=== PATIENT | male | born 1980 | race Caucasian/White ===

== ENCOUNTER 2024-04-29 09:48 | Outpatient (CLI) | payer OTHER, SELFPAY ==
--- NOTE | ~2024-04-29 | XR_ITS ---
3 VIEWS LUMBAR SPINE Ordering provider: Alla Freitas APRN History: . M54.9 - Dorsalgia, unspecified . Comparison: None. FINDINGS: VERTEBRAL BODIES: No visible fracture or subluxation. Degenerative changes of the spine. DISK SPACES: Narrowing of the disc L5-S1.. Joint disease at the level of L5-S1. SOFT TISSUES: Normal. IMPRESSION: No acute osseous abnormality lumbar spine. Degenerative disc disease at the level L5-S1. Reviewed, dictated and finalized at location A. SPEC
== END 2024-04-29 09:49 | disposition home or self-care (01) ==
PROVIDERS: PCP Family Medicine; Visit Provider Nurse Practitioner Family
DX: M51.379 Other intervertebral disc degeneration, lumbosacral region without mention of lumbar back pain or lower extremity pain (principal)
CPT/HCPCS: 72100

== ENCOUNTER 2024-08-15 13:20 | Observation (INO) | payer OTHER, SELFPAY ==
[2024-08-15] VITALS (7 sets, daily range): BP systolic 120–146; BP diastolic 70–87; PULSE 70–91; RESP 16–21; TEMP 36.7–38.1; O2SAT 98–100; BMI 34.0
--- NOTE | ~2024-08-15 | MR_ITS ---
EXAMINATION: MR lumbar spine wo/w con DATE: 08/16/2024 10:50 INDICATION: Fever. Radicular pain. TECHNIQUE: Magnetic resonance imaging (MRI) of the lumbar spine was performed without and with 20 mL Multihance intravenous contrast. Sequences included sagittal T2-weighted FSE, sagittal T2-weighted FS FSE, and sagittal and axial T1-weighted FSE. Postcontrast sequences included axial T2-weighted FSE, sagittal T1-weighted FSE, and axial and sagittal T1-weighted FS FSE. COMPARISON: None FINDINGS: 5 mm retrolisthesis L5 on S1. Vertebral body heights are normal. Normal marrow signal. Moderate disc height loss with annular fissure at L5-S1. Remaining lumbar discs demonstrate normal height and sign al. No findings to suggest discitis. The conus medullaris terminates at L1. There is normal signal in the caudal spinal cord. 1.2 cm T2 hyperintense nonenhancing right renal cyst. Paravertebral soft tis sues are unremarkable. The following disc levels are specifically discussed: T12-L1 through L2-L3: The disc does not extend beyond the endplate margin. There is mild bilateral fa cet joint osteoarthritis. There is no neural foraminal stenosis. There is no central canal stenosis. L3-L4: Right foraminal zone annular fissure and small disc protrusion. There is mild bilateral facet joint osteoarthritis. There is mild right neural foraminal stenosis. There is minimal central canal s tenosis with mild narrowing of the right lateral recess. L4-L5: The disc does not extend beyond the endplate margin. There is mild bilateral facet joint osteo arthritis. There is mild bilateral neural foraminal stenosis. There is no central canal stenosis. L5-S1: Disc is mildly bulging with superimposed right paracentral to right foraminal zone disc bulge which narrows the right lateral recess exerting mass effect upon the traversing right S1 nerve root. There is mild bilateral facet joint osteoarthritis. There is mild to moderate left and moderate right neural foraminal stenosis. There is mild central canal stenosis. IMPRESSION: 1. Mild lumbar spondylosis most notable for annular fissure and right paracentral to foraminal zone d isc protrusion at L5-S1 which and exerts mass effect upon the traversing right S1 nerve root at the l ateral recess. Correlate clinically for muscle weakness of plantar flexion, sensory change of the lat eral foot and small toe, and depressed ankle reflex. Reviewed, dictated and finalized at location A. IMPRESSION: 1. Mild lumbar spondylosis most notable for annular fissure and right paracentr al to foraminal zone disc protrusion at L5-S1 which and exerts mass effect upon the traversing right S1 nerve root at the lateral recess. Correlate clinically for muscle weakness of plantar flexion, sensory change of the lateral foot and small toe, and depressed ankle reflex.
--- NOTE | ~2024-08-15 | CT_ITS ---
CLINICAL INDICATION: Acute on chronic back pain COMPARISON: None. TECHNIQUE: Multiple contiguous axial images of the abdomen and pelvis were performed following the ad ministration of with 100 mL Omnipaque-350 intravenous contrast The dose-length product (DLP) was 1019.04 mGy-cm. Automated exposure control and iterative reconstruction technique were employed. FINDINGS/OBSERVATIONS: Visualized lower thorax: Trace bibasilar atelectasis. The remainder of the bilateral lung bases are clear. The heart is of normal size, without pericardial effusion. Small hiatal hernia is present. Liver: The liver demonstrates homogeneous enhancement and is enlarged measuring 21 cm in longitudinal dimens ion. Gallbladder and biliary system: The gallbladder is only minimally distended, and otherwise unremarkable. Pancreas: The pancreas enhances homogeneously without ductal dilatation. Spleen: The spleen enhances homogeneously and is borderline enlarged measuring 14 cm in longitudinal dimensio n. Kidneys: The bilateral kidneys enhance symmetrically without hydronephrosis or renal calculi. Adrenal glands: Unremarkable. Gastrointestinal tract: Edematous mural thickening within the cecum and proximal ascending colon. Appendix: The air-filled appendix is of normal caliber (axial series, images 120 through 144) Vasculature: Unremarkable. Lymph nodes: No pathologically enlarged or morphologically suspicious lymph nodes within the retroperitoneum or at the root of the mesentery. Pelvic structures: The bladder is distended, and otherwise unremarkable. The prostate gland is not enlarged. Body wall and musculoskeletal: Small fat-containing umbilical hernia. Redemonstration of degenerative disease at the level of L5/S1, as described previously. IMPRESSION: Edematous mural thickening within the cecum and proximal ascending colon. Hepatomegaly. Borderline splenomegaly. Trace bibasilar atelectasis. Redemonstration of patient's known degenerative disease at the level of L5/S1 Reviewed, dictated and finalized at location A.
--- NOTE | ~2024-08-15 | CT_ITS ---
CT lumbar spine wo con Ordering provider: Andra Rock History: 44 years Male with . right sided sciatica . Comparison: None. Technique: CT lumbar spine without contrast. Automated exposure control and iterative reconstruction technique were employed. The dose-length product was 889.27 mGy-cm. FINDINGS: VERTEBRAE: Normal height and alignment. No subluxation or visible acute fracture. DISC SPACES: Degenerative disc disease at the level of L5-S1. T12-L1: No stenosis. L1-L2: No stenosis. L2-L3: No stenosis. L3-L4: No stenosis. L4-L5: No stenosis. L5-S1: No stenosis. Diffuse disc bulge. Narrowing of the right foramen with root compression. PARASPINOUS SOFT TISSUES: Bilateral sacroiliitis. IMPRESSION: No acute osseous abnormality. Degenerative disc disease at the level of L5-S1 with diffuse disc bulge with narrowing of the right f oramen and with compression. MRI is better for evaluation. Reviewed, dictated and finalized at location A. IMPRESSION: No acute osseous abnormality. Degenerative disc disease at the level of L5-S1 with diffuse disc bulge with na rrowing of the right foramen and with compression. MRI is better for evaluation .
--- NOTE | ~2024-08-15 | XR_ITS ---
CHEST RADIOGRAPH, PA AND LATERAL CLINICAL HISTORY: fever . COMPARISON: None available TECHNIQUE: PA and lateral views of the chest. FINDINGS The cardiomediastinal silhouette is unremarkable. The lungs are clear. Visualized osseous structures and soft tissues are unremarkable. IMPRESSION: No focal infiltrate or effusion. Reviewed, dictated and finalized at location A.
--- NOTE | 2024-08-15 14:17 | PC.NURSE ---
Visitor with pt. alerted RN at electrician front that pt. was dizzy. This RN went out to to assess pt. Pt. pacing, gait steady. No pallor. Pt. denies dizziness but states the pain is just really bad. VS obtained. WNL. Pt. educated to alert the RN at the front if there are any additional changes.
--- NOTE | 2024-08-15 15:58 | ED_ITS ---
HPI - Extremity Problem General Chief complaint: Extremity Problem,Nontraumatic <Andra Rock PA-C - Last Filed: 08/15/24 17:04> Stated complaint: R. lower back pain, radiates to R. foot <Andra Rock PA-C - Last Filed: 08/15/24 17:04> Time Seen by Provider: 08/15/24 18:26 <Andra Rock PA-C - Last Filed: 08/15/24 17:04> Focused HPI: 44-year-old male with reported history of sciatica presents emergency department for acute on chronic back pain. Patient states today he had a ?fever? of 99.6. He states shortly after the pain in his back became worse than normal which prompted him to come to the ED. He states it starts in his right low back and radiates down the posterior aspect of his thigh and wraps around to the dorsum of his 4th and 5th metatarsals. He reports intermittent numbness and tingling. He states his symptoms are much worse when he sits for long periods of time and is having difficulty finding a comfortable position. He denies procedures or surgeries to his back, IV drug use, use of immunosuppressants or steroids, vomiting, abdominal pain, saddle anesthesia, bowel or bladder incontinence. GENERAL: Uncomfortable-appearing HEAD: Normocephalic, atraumatic. CHEST: Clear to auscultation. ?No respiratory distress. BACK: No significant midline lumbar spinous tenderness, crepitus, step-offs or deformities. No overlying skin changes. Minimal tenderness over the right paraspinous muscles and right SI joint. EXT: Bilateral lower extremity strength 5/5 with sensation intact throughout. No saddle anesthesia. Right DP pulse 2 +. HEART: Regular rate and rhythm.? NEURO: ?Alert and oriented x3. Patient screened in triage and initial orders placed.? ?Additional care and disposition to be based upon?diagnostic testing and treatment. <Andra Rock PA-C - Last Filed: 08/15/24 17:04> Focused HPI: 44-year-old male with reported history of sciatica presents emergency department for acute on chronic back pain. Patient states today he had a fever of 99.6. He states shortly after the pain in his back became worse than normal which prompted him to come to the ED. He states it starts in his right low back and radiates down the posterior aspect of his thigh and wraps around to the dorsum of his 4th and 5th metatarsals. He reports intermittent numbness and tingling. He states his symptoms are much worse when he sits for long periods of time and is having difficulty finding a comfortable position. He denies procedures or surgeries to his back, IV drug use, use of immunosuppressants or steroids, vomiting, abdominal pain, saddle anesthesia, bowel or bladder incontinence. GENERAL: Uncomfortable-appearing HEAD: Normocephalic, atraumatic. CHEST: Clear to auscultation. ?No respiratory distress. BACK: No significant midline lumbar spinous tenderness, crepitus, step-offs or deformities. No overlying skin changes. Minimal tenderness over the right paraspinous muscles and right SI joint. EXT: Bilateral lower extremity strength 5/5 with sensation intact throughout. No saddle anesthesia. Right DP pulse 2 +. HEART: Regular rate and rhythm.? NEURO: ?Alert and oriented x3. Patient screened in triage and initial orders placed.? ?Additional care and disposition to be based upon?diagnostic testing and treatment. <Nicci Segura PA-C - Last Filed: 08/16/24 02:34> Related Data Home medications: Home Medications ?Medication ?Instructions ?Recorded ?Confirmed ?Last Taken ?Type omega-3 fatty acids 500 mg PO DAILY 08/16/24 08/16/24 Unknown History <Andra Rock PA-C - Last Filed: 08/15/24 17:04> Allergies/Adverse reactions: Allergies Allergy/AdvReac Type Severity Reaction Status Date / Time No Known Allergies Allergy Verified 08/15/24 13:21 <OSWALD Hartman Last Filed: 08/15/24 17:04> Review of Systems 2 Review of Systems: All systems reviewed & are unremarkable except as noted in HPI and below <Nicci Segura PA-C - Last Filed: 08/16/24 02:34> PMFSH Past Medical History Medical History: Medical History Sinusitis Back pain with sciatica Screening for prostate cancer Wellness examination BMI 33.0-33.9,adult BMI 32.0-32.9,adult BMI 31.0-31.9,adult BMI 30.0-30.9,adult <Andra Rock PA-C - Last Filed: 08/15/24 17:04> Family History Family History: Family History Mother Family history of malignant neoplasm of cervix Father No problems noted. Sibling Celiac disease <Andra Rock PA-C - Last Filed: 08/15/24 17:04> Social History Social History: Social History Smoking status: Never smoker Second hand tobacco smoke exposure: No Alcohol intake: current Drinks per week: 1 Substance use: current Substance use type: marijuana Other substance usage details: GUMMIES Do You Feel Safe in your Home?: Yes Lack of Transportation: No Lack of Food: Never True Current Housing: Decline to Answer Concerned About Future Housing: No Difficulty Paying Gas/Electric Bills: No Difficulty Paying for Meds: No Currently Unemployed: No Education: Associate Degree Difficulty w/ Childcare or Family Care: No Living arrangements: with family Occupation/Education: occupation Additional occupation/education comments: [employer] Gender identity (if verbalized by the patient): Male Spiritual care concerns: No <Andra Rock PA-C - Last Filed: 08/15/24 17:04> Exam 2 Narrative: GENERAL: Ill-appearing, well-nourished, and in no acute distress. HEAD: Normocephalic, atraumatic. EYES: EOMI. ENT: Nares clear, no rhinorrhea or epistaxis. Mucous membranes moist. Oropharynx without tonsillar hypertrophy exudate or other lesions. NECK: Supple. No adenopathy or masses. CHEST: Clear to auscultation. No respiratory distress. No wheezes rales or rhonchi HEART: Regular rate and rhythm. No murmur heard. Normal peripheral pulses. ABDOMEN: Soft, nontender, nondistended, normal active bowel sounds. EXTREMITIES: Normal range of motion. No edema. Strength equal in bilateral lower extremities (5/5). Normal DP pulses SKIN: Warm, dry, no rash. NEURO: No focal deficits. Alert and oriented x3. Cranial nerves 2-12 grossly intact PSYCH: Normal mood and affect <Nicci Segura PA-C - Last Filed: 08/16/24 02:34> Course Course Emergency Course: Patient and family updated on workup and recommendation for admission < Nicci Segura PA-C - Last Filed: 08/16/24 02:34> INFORMATION COORDINATOR/PA Physician Supervision For this patient encounter, I reviewed the INFORMATION COORDINATOR or PA documentation, treatment plan, and medical decision making. <Herve Oro MD - Last Filed: 08/16/24 02:54> Consultations Consultation #1: Spoke with Dr. Cuellar about patient and workup. Will admit to obtain MRI, he will consult <Nicci Segura PA-C - Last Filed: 08/16/24 02:34> Date: 08/15/24 <Nicci Segura PA-C - Last Filed: 08/16/24 02:34> Consultation #2: Spoke with hospitalist about patient and workup who accepts admission < Nicci Segura PA-C - Last Filed: 08/16/24 02:34> Date: 08/15/24 <Nicci Segura PA-C - Last Filed: 08/16/24 02:34> Vital Signs Vital signs: Vital Signs Temperature 98.1 F 08/15/24 13:22 Pulse Rate 71 08/15/24 13:22 Respiratory Rate 16 08/15/24 13:22 Blood Pressure 133/81 08/15/24 13:22 Pulse Oximetry 100 08/15/24 13:22 Oxygen Delivery Room Air 08/15/24 13:22 Temperature 98.2 F 08/16/24 02:23 Pulse Rate 67 08/16/24 02:23 Respiratory Rate 18 08/16/24 02:23 Blood Pressure 155/75 H 08/16/24 02:23 Pulse Oximetry 96 08/16/24 02:23 Oxygen Delivery Room Air 08/15/24 18:32 <Andra Rock PA-C - Last Filed: 08/15/24 17:04> Vital Signs Temperature 98.1 F 08/15/24 13:22 Pulse Rate 71 08/15/24 13:22 Respiratory Rate 16 08/15/24 13:22 Blood Pressure 133/81 08/15/24 13:22 Pulse Oximetry 100 08/15/24 13:22 Oxygen Delivery Room Air 08/15/24 13:22 Temperature 98.2 F 08/16/24 02:23 Pulse Rate 67 08/16/24 02:23 Respiratory Rate 18 08/16/24 02:23 Blood Pressure 155/75 H 08/16/24 02:23 Pulse Oximetry 96 08/16/24 02:23 Oxygen Delivery Room Air 08/15/24 18:32 <Nicci Segura PA-C - Last Filed: 08/16/24 02:34> Vital Signs Temperature 98.1 F 08/15/24 13:22 Pulse Rate 71 08/15/24 13:22 Respiratory Rate 16 08/15/24 13:22 Blood Pressure 133/81 08/15/24 13:22 Pulse Oximetry 100 08/15/24 13:22 Oxygen Delivery Room Air 08/15/24 13:22 Temperature 98.2 F 08/16/24 02:23 Pulse Rate 67 08/16/24 02:23 Respiratory Rate 18 08/16/24 02:23 Blood Pressure 155/75 H 08/16/24 02:23 Pulse Oximetry 96 08/16/24 02:23 Oxygen Delivery Room Air 08/15/24 18:32 <Herve Oro MD - Last Filed: 08/16/24 02:54> MDM - Extremity (Nontraumatic) MDM Narrative Medical decision making narrative: Patient presents the emergency department for radicular back pain. Worsening over the last several months. Reports he developed a fever today. Patient febrile in the ER he appears ill. His vitals are stable. He is neurologically intact. CBC with leukocytosis to 12.8. ESR is not elevated. CRP is elevated. Lactic acid is not elevated. Urine without evidence of infection. Chest x-ray without acute cardiopulmonary abnormality. CT lumbar spine shows degenerative disc disease at the level L5/S1 with diffuse disc bulge with narrowing of the right foramen with compression. CT abdomen pelvis shows mural thickening within the cecum and proximal ascending colon. Patient does not have any abdominal pain or diarrhea. Borderline splenomegaly. Trace atelectasis. Degenerative disc disease. Blood cultures obtained. Patient started on IV antibiotics. Spoke with Dr. Cuellar about patient and workup. Will admit to obtain MRI, he will consult. Spoke with hospitalist about patient and workup who accepts admission <Nicci Segura PA-C - Last Filed: 08/16/24 02:34> Differential Diagnosis Differential diagnosis: Likely other (radiculopathy, osteomyelitis, spinal abscess, UTI) <Nicci Segura PA-C - Last Filed: 08/16/24 02:34> Lab Data Attestation: I reviewed the patient's lab results. <Nicci Segura PA-C - Last Filed: 08/16/24 02:34> Result diagrams: 08/15/24 18:45 08/15/24 18:45 <Andra Rock PA-C - Last Filed: 08/15/24 17:04> Labs: Lab Results 08/15/24 08/15/24 08/15/24 Range/Units 18:45 19:13 21:06 WBC 12.8 H (4.5-10.0) K/mm3 RBC 4.99 (4.6-6.20) M/mm3 Hgb 14.7 (14.0-18.0) g/dL Hct 43.1 (42.0-52.0) % MCV 86.4 (80-100) fl MCH 29.5 (26-34) pg MCHC 34.1 (32-36) g/dl RDW 12.2 (11.5-14.5) % Plt Count 197 (150-375) k/mm3 MPV 11.2 H (7.4-10.4) fl Immature Gran % (Auto) 0.4 (0-0.5) % Neut % (Auto) 83.9 H (45.5-73.1) % Lymph % (Auto) 7.3 L (18.3-44.2) % [place] % (Auto) 8.1 (2.6-8.5) % Eos % (Auto) 0.1 (0-4.4) % Baso % (Auto) 0.2 (0.2-1.2) % Lymph # (Auto) 0.93 (0.9-3.2) K/mm3 [place] # (Auto) 1.0 H (0.1-0.6) K/mm3 Eos # (Auto) 0.0 (0-0.3) K/mm3 Baso # (Auto) 0.0 (0.0-0.1) K/mm3 Abs Immat Gran (auto) 0.05 H (0.00-0.031) K/mm3 Absolute Neuts (auto) 10.7 H (1.3-6.7) K/mm3 Absolute Nucleated RBC 0.000 (0.0-0.012) K/mm3 Nucleated RBC % 0.0 (0.0-0.2) % ESR 13 (0-20) mm/hr Sodium 136 L (137-145) mmol/L Potassium 3.1 L (3.4-5.0) mmol/L Chloride 102 (98-107) mmol/L Carbon Dioxide 25 (22-30) mmol/L Anion Gap 9 (4-12) mmol/L BUN 25 H (9-20) mg/dL Creatinine 1.10 (0.7-1.3) mg/dL Estim Creat Clear Calc 92 ml/min Estimated GFR > 60 (59 - ) Glucose 126 H (65-110) mg/dL Lactic Acid 0.8 (0.7-2.0) mmol/L Calcium 8.7 (8.4-10.2) mg/dL Magnesium 2.1 (1.6-2.3) mg/dL Total Bilirubin 0.8 (0.2-1.3) mg/dL AST 42 (17-59) U/L ALT 32 (6-50) U/L Alkaline Phosphatase 64 (38-126) U/L C-Reactive Protein 8.5 H (<1.0) mg/dL Total Protein 6.8 (6.3-8.2) g/dL Albumin 3.9 (3.5-5.1) g/dL Urine Color Dark yellow (Yellow) Urine Appearance Clear (Clear) Urine pH 5.5 (5.0-9.0) Ur Specific Hayden 1.036 H (1.001-1.035) Urine Protein 1+ H (Negative) mg/dL Urine Glucose (UA) Negative (Negative) mg/dL Urine Ketones 1+ H (Negative) mg/dL Ur Blood (Man) Negative (Negative) Urine Nitrate Negative (Negative) Urine Bilirubin 1+ H (Negative) Urine Urobilinogen 1.0 (<2.0) mg/dL Add Ur Microanalysis Reviewed Leukocyte Esterase Rfl Negative (Negative) KATARINA/UL Urine RBC 6-10 H (0-2) /hpf Urine WBC 0-5 (0-3) /hpf Ur Squamous Epith Cells Occasional (Few) /hpf Urine Bacteria None seen /hpf Urine Casts 6-10 Urine Mucus Present /lpf <Andra Rock PA-C - Last Filed: 08/15/24 17:04> Lab Results 08/15/24 08/15/24 08/15/24 Range/Units 18:45 19:13 21:06 WBC 12.8 H (4.5-10.0) K/mm3 RBC 4.99 (4.6-6.20) M/mm3 Hgb 14.7 (14.0-18.0) g/dL Hct 43.1 (42.0-52.0) % MCV 86.4 (80-100) fl MCH 29.5 (26-34) pg MCHC 34.1 (32-36) g/dl RDW 12.2 (11.5-14.5) % Plt Count 197 (150-375) k/mm3 MPV 11.2 H (7.4-10.4) fl Immature Gran % (Auto) 0.4 (0-0.5) % Neut % (Auto) 83.9 H (45.5-73.1) % Lymph % (Auto) 7.3 L (18.3-44.2) % [place] % (Auto) 8.1 (2.6-8.5) % Eos % (Auto) 0.1 (0-4.4) % Baso % (Auto) 0.2 (0.2-1.2) % Lymph # (Auto) 0.93 (0.9-3.2) K/mm3 [place] # (Auto) 1.0 H (0.1-0.6) K/mm3 Eos # (Auto) 0.0 (0-0.3) K/mm3 Baso # (Auto) 0.0 (0.0-0.1) K/mm3 Abs Immat Gran (auto) 0.05 H (0.00-0.031) K/mm3 Absolute Neuts (auto) 10.7 H (1.3-6.7) K/mm3 Absolute Nucleated RBC 0.000 (0.0-0.012) K/mm3 Nucleated RBC % 0.0 (0.0-0.2) % ESR 13 (0-20) mm/hr Sodium 136 L (137-145) mmol/L Potassium 3.1 L (3.4-5.0) mmol/L Chloride 102 (98-107) mmol/L Carbon Dioxide 25 (22-30) mmol/L Anion Gap 9 (4-12) mmol/L BUN 25 H (9-20) mg/dL Creatinine 1.10 (0.7-1.3) mg/dL Estim Creat Clear Calc 92 ml/min Estimated GFR > 60 (59 - ) Glucose 126 H (65-110) mg/dL Lactic Acid 0.8 (0.7-2.0) mmol/L Calcium 8.7 (8.4-10.2) mg/dL Magnesium 2.1 (1.6-2.3) mg/dL Total Bilirubin 0.8 (0.2-1.3) mg/dL AST 42 (17-59) U/L ALT 32 (6-50) U/L Alkaline Phosphatase 64 (38-126) U/L C-Reactive Protein 8.5 H (<1.0) mg/dL Total Protein 6.8 (6.3-8.2) g/dL Albumin 3.9 (3.5-5.1) g/dL Urine Color Dark yellow (Yellow) Urine Appearance Clear (Clear) Urine pH 5.5 (5.0-9.0) Ur Specific Hayden 1.036 H (1.001-1.035) Urine Protein 1+ H (Negative) mg/dL Urine Glucose (UA) Negative (Negative) mg/dL Urine Ketones 1+ H (Negative) mg/dL Ur Blood (Man) Negative (Negative) Urine Nitrate Negative (Negative) Urine Bilirubin 1+ H (Negative) Urine Urobilinogen 1.0 (<2.0) mg/dL Add Ur Microanalysis Reviewed Leukocyte Esterase Rfl Negative (Negative) KATARINA/UL Urine RBC 6-10 H (0-2) /hpf Urine WBC 0-5 (0-3) /hpf Ur Squamous Epith Cells Occasional (Few) /hpf Urine Bacteria None seen /hpf Urine Casts 6-10 Urine Mucus Present /lpf <Nicci Segura PA-C - Last Filed: 08/16/24 02:34> Lab Results 08/15/24 08/15/24 08/15/24 Range/Units 18:45 19:13 21:06 WBC 12.8 H (4.5-10.0) K/mm3 RBC 4.99 (4.6-6.20) M/mm3 Hgb 14.7 (14.0-18.0) g/dL Hct 43.1 (42.0-52.0) % MCV 86.4 (80-100) fl MCH 29.5 (26-34) pg MCHC 34.1 (32-36) g/dl RDW 12.2 (11.5-14.5) % Plt Count 197 (150-375) k/mm3 MPV 11.2 H (7.4-10.4) fl Immature Gran % (Auto) 0.4 (0-0.5) % Neut % (Auto) 83.9 H (45.5-73.1) % Lymph % (Auto) 7.3 L (18.3-44.2) % [place] % (Auto) 8.1 (2.6-8.5) % Eos % (Auto) 0.1 (0-4.4) % Baso % (Auto) 0.2 (0.2-1.2) % Lymph # (Auto) 0.93 (0.9-3.2) K/mm3 [place] # (Auto) 1.0 H (0.1-0.6) K/mm3 Eos # (Auto) 0.0 (0-0.3) K/mm3 Baso # (Auto) 0.0 (0.0-0.1) K/mm3 Abs Immat Gran (auto) 0.05 H (0.00-0.031) K/mm3 Absolute Neuts (auto) 10.7 H (1.3-6.7) K/mm3 Absolute Nucleated RBC 0.000 (0.0-0.012) K/mm3 Nucleated RBC % 0.0 (0.0-0.2) % ESR 13 (0-20) mm/hr Sodium 136 L (137-145) mmol/L Potassium 3.1 L (3.4-5.0) mmol/L Chloride 102 (98-107) mmol/L Carbon Dioxide 25 (22-30) mmol/L Anion Gap 9 (4-12) mmol/L BUN 25 H (9-20) mg/dL Creatinine 1.10 (0.7-1.3) mg/dL Estim Creat Clear Calc 92 ml/min Estimated GFR > 60 (59 - ) Glucose 126 H (65-110) mg/dL Lactic Acid 0.8 (0.7-2.0) mmol/L Calcium 8.7 (8.4-10.2) mg/dL Magnesium 2.1 (1.6-2.3) mg/dL Total Bilirubin 0.8 (0.2-1.3) mg/dL AST 42 (17-59) U/L ALT 32 (6-50) U/L Alkaline Phosphatase 64 (38-126) U/L C-Reactive Protein 8.5 H (<1.0) mg/dL Total Protein 6.8 (6.3-8.2) g/dL Albumin 3.9 (3.5-5.1) g/dL Urine Color Dark yellow (Yellow) Urine Appearance Clear (Clear) Urine pH 5.5 (5.0-9.0) Ur Specific Hayden 1.036 H (1.001-1.035) Urine Protein 1+ H (Negative) mg/dL Urine Glucose (UA) Negative (Negative) mg/dL Urine Ketones 1+ H (Negative) mg/dL Ur Blood (Man) Negative (Negative) Urine Nitrate Negative (Negative) Urine Bilirubin 1+ H (Negative) Urine Urobilinogen 1.0 (<2.0) mg/dL Add Ur Microanalysis Reviewed Leukocyte Esterase Rfl Negative (Negative) KATARINA/UL Urine RBC 6-10 H (0-2) /hpf Urine WBC 0-5 (0-3) /hpf Ur Squamous Epith Cells Occasional (Few) /hpf Urine Bacteria None seen /hpf Urine Casts 6-10 Urine Mucus Present /lpf <Herve Oro MD - Last Filed: 08/16/24 02:54> Imaging Data Radiologist's impression: ITS Impressions Lumbar Spine CT 08/15/24 16:20 IMPRESSION: No acute osseous abnormality. Degenerative disc disease at the level of L5-S1 with diffuse disc bulge with narrowing of the right foramen and with compression. MRI is better for evaluation. Abdomen/Pelvis CT 08/15/24 21:32 IMPRESSION: Edematous mural thickening within the cecum and proximal ascending colon. Hepatomegaly. Borderline splenomegaly. Trace bibasilar atelectasis. Redemonstration of patient's known degenerative disease at the level of L5/S1 Chest X-Ray 08/15/24 22:29 IMPRESSION: No focal infiltrate or effusion. <Nicci Segura PA-C - Last Filed: 08/16/24 02:34> Critical Care Time Critical Care Time Critical Care Time: No <Nicci Segura PA-C - Last Filed: 08/16/24 02:34> Discharge Plan Discharge Clinical Impression: Radiculopathy Qualifiers: Spinal region: lumbosacral Qualified Code(s): M54.17 - Radiculopathy, lumbosacral region Fever Qualifiers: Fever type: unspecified Qualified Code(s): R50.9 - Fever, unspecified <Andra Rock PA-C - Last Filed: 08/15/24 17:04> Patient Disposition: Still a Patient <OSWALD Hartman Last Filed: 08/15/24 17:04> Condition: Stable <OSWALD Hartman Last Filed: 08/15/24 17:04>
--- NOTE | 2024-08-15 17:42 | PC.NURSE ---
Pt came up to intake desk requesting blood work be ordered and drawn for her d/t concern for spinal infection and sepsis. Pt made aware that pt was seen by [facility] provider and certain orders placed and that we are waiting on room for ER but will continue to be monitored.
[2024-08-15] MEDS: diazePAM INJ (*CRX) 10 MG/2 ML SYRINGE 5 MG IV PUSH (18:46)
[2024-08-15] MEDS: HYDROcodone/acetaminophen (*CRX) 5-325 MG TABLET 1 TAB PO (18:46)
[2024-08-15] MEDS: KETOROLAC 15 MG/ML VIAL (*BKC) IV PUSH (18:48)
[2024-08-15] MEDS: LIDOCAINE 5% PATCH 1 PATCH TRANSDERM (18:52)
[2024-08-15 18:53] LABS: Basophils Percent Auto 0.2 % (0.2-1.2); Eosinophils Percent Auto 0.1 % (0-4.4); Hematocrit 43.1 % (42.0-52.0); Hemoglobin 14.7 g/dL (14.0-18.0); Immature Granulocyte Absolute 0.05 K/mm3 (0.00-0.031); Immature Granulocyte Percent A 0.4 % (0-0.5); Lymphocytes Absolute Auto 0.93 K/mm3 (0.9-3.2); Lymphocytes Percent Auto 7.3 % (18.3-44.2); Mean Corpuscular HGB Conc 34.1 g/dl (32-36); Mean Corpuscular Hemoglobin 29.5 pg (26-34); Mean Corpuscular Volume 86.4 fl (80-100); Mean Platelet Volume 11.2 fl (7.4-10.4); Monocytes Percent Auto 8.1 % (2.6-8.5); Neutrophils Absolute Auto 10.7 K/mm3 (1.3-6.7); Neutrophils Percent Auto 83.9 % (45.5-73.1); Platelet Count Result 197 k/mm3 (150-375); Red Blood Count 4.99 M/mm3 (4.6-6.20); Red Cell Distribution Width 12.2 % (11.5-14.5); White Blood Count 12.8 K/mm3 (4.5-10.0)
[2024-08-15 19:09] LABS: Alanine Aminotransferase 32 U/L (6-50); Albumin Level 3.9 g/dL (3.5-5.1); Alkaline Phosphatase 64 U/L (38-126); Anion Gap 9 mmol/L (4-12); Aspartate Amino Transferase 42 U/L (17-59); Bilirubin,Total 0.8 mg/dL (0.2-1.3); Blood Urea Nitrogen 25 mg/dL (9-20); CRP 8.5 mg/dL (<1.0); Calcium 8.7 mg/dL (8.4-10.2); Carbon Dioxide 25 mmol/L (22-30); Chloride 102 mmol/L (98-107); Estimated CRCL calculation 92 ml/min; Estimated Glomerular Filt Rate > 60; Glucose 126 mg/dL (65-110); Potassium 3.1 mmol/L (3.4-5.0); Sodium 136 mmol/L (137-145); Total Protein 6.8 g/dL (6.3-8.2)
[2024-08-15 19:21] LABS: Magnesium 2.1 mg/dL (1.6-2.3)
[2024-08-15 19:47] LABS: Add Urine Microscopic? YES; Appearance Urine Clear (Clear); Bacteria Urine None Seen /hpf; Bilirubin Urine 1+ (Negative); Blood Urine Negative (Negative); Color Urine Dark Yellow (Yellow); Glucose Urine UA Negative (Negative); Ketones Urine 1+ mg/dL (Negative); Leukocyte Esterase Ur Negative LEU/UL (Negative); Mucus Urine Present /lpf; Need Manual Microscopic Reviewed; Nitrate Urine Negative (Negative); Protein Urine 1+ mg/dL (Negative); Specific Grav Ur 1.036 (1.001-1.035); Squamous Epithelial Cell Urine Occasional /hpf (Few); WBC Urine 0-5 /hpf (0-3); pH Urine 5.5 (5.0-9.0)
[2024-08-15 19:54] LABS: Erythrocyte Sedimentation Rate 13 mm/hr (0-20)
[2024-08-15] MEDS: SODIUM CHLORIDE 0.9% IV 1,000 ML 999 ML IV CONT ×2 (20:03→21:46)
[2024-08-15] MEDS: POTASSIUM CHLORIDE 20 MEQ ER TABLET 40 MEQ PO (20:04)
[2024-08-15] MEDS: ACETAMINOPHEN 325 MG TABLET 650 MG PO (20:05)
--- NOTE | 2024-08-15 20:58 | PC.NURSE ---
attempt x2 unsuccessful in getting cultures and lactic. Tech Rodney attempt x2 with no success. SARAHY Begum called phlebotomy to draw. phlebotomy at bedside at this time.
[2024-08-15 21:27] LABS: Lactic Acid Reflex 0.8 mmol/L (0.7-2.0)
[2024-08-15] MEDS: cefTRIAXone 2 GM/NS 100 ML 2 GM/100 ML BAG IVPB (22:56)
[2024-08-15] MEDS: VANCOMYCIN 1,250 MG/NS 250 ML 1,250 MG/250 ML BAG 166.67 MG IVPB (23:38)
[2024-08-15] MEDS: oxyCODONE HCL (*CRX) 5 MG TAB IR PO (23:38)
[2024-08-16 00:08] VITALS: BP 125/87; PULSE 72; RESP 21; TEMP 36.9; O2SAT 99
--- NOTE | 2024-08-16 00:19 | ADMGEN ---
This patient, Rodney Deluca, was admitted to Medical Room 349-01. Patient/family oriented to hospital policies and general routines including ID bracelet, bed and alarms, visiting hours, pain management, procedures, bathroom and other care routines, personal items, smoking policy, room service/diet, and visiting hours. Information on how to activate the Rapid Response Team has been discussed. Patient/Family are encouraged to report perceived risks to care and to ask questions if they do not understand what they are told or what they should do.
[2024-08-16] MEDS: SODIUM CHLORIDE 0.9% IV 1,000 ML 125 ML IV CONT ×2 (01:57→17:23)
[2024-08-16] MEDS: VANCOMYCIN 1,250 MG/NS 250 ML 1,250 MG/250 ML BAG 166.67 MG IVPB (02:01)
[2024-08-16 02:23] VITALS: BP 155/75; PULSE 67; RESP 18; TEMP 36.8; O2SAT 96
[2024-08-16] MEDS: oxyCODONE HCL (*CRX) 5 MG TAB IR PO ×5 (05:39→21:42)
[2024-08-16 05:52] LABS: Basophils Percent Auto 0.4 % (0.2-1.2); Eosinophils Absolute Auto 0.1 K/mm3 (0-0.3); Hematocrit 41.8 % (42.0-52.0); Immature Granulocyte Absolute 0.03 K/mm3 (0.00-0.031); Immature Granulocyte Percent A 0.3 % (0-0.5); Lymphocytes Absolute Auto 1.23 K/mm3 (0.9-3.2); Lymphocytes Percent Auto 12.6 % (18.3-44.2); Mean Corpuscular HGB Conc 33.5 g/dl (32-36); Mean Corpuscular Hemoglobin 29.4 pg (26-34); Mean Corpuscular Volume 87.8 fl (80-100); Mean Platelet Volume 11.2 fl (7.4-10.4); Monocytes Absolute Auto 1.1 K/mm3 (0.1-0.6); Monocytes Percent Auto 11.1 % (2.6-8.5); Neutrophils Absolute Auto 7.3 K/mm3 (1.3-6.7); Neutrophils Percent Auto 74.6 % (45.5-73.1); Platelet Count Result 187 k/mm3 (150-375); Red Blood Count 4.76 M/mm3 (4.6-6.20); Red Cell Distribution Width 12.4 % (11.5-14.5); White Blood Count 9.8 K/mm3 (4.5-10.0)
[2024-08-16 06:00] VITALS: BP 146/76; PULSE 73; RESP 18; TEMP 36.8; O2SAT 96
[2024-08-16 06:18] LABS: Alanine Aminotransferase 27 U/L (6-50); Albumin Level 3.5 g/dL (3.5-5.1); Alkaline Phosphatase 63 U/L (38-126); Anion Gap 6 mmol/L (4-12); Aspartate Amino Transferase 39 U/L (17-59); Bilirubin,Total 0.3 mg/dL (0.2-1.3); Blood Urea Nitrogen 17 mg/dL (9-20); Calcium 8.2 mg/dL (8.4-10.2); Carbon Dioxide 28 mmol/L (22-30); Chloride 106 mmol/L (98-107); Estimated CRCL calculation 104 ml/min; Estimated Glomerular Filt Rate > 60; Glucose 109 mg/dL (65-110); Potassium 3.4 mmol/L (3.4-5.0); Sodium 140 mmol/L (137-145); Total Protein 6.3 g/dL (6.3-8.2)
[2024-08-16] MEDS: cefTRIAXone 2 GM/NS 100 ML 2 GM/100 ML BAG IVPB ×2 (09:18→21:42)
[2024-08-16] MEDS: IBUPROFEN 400 MG TABLET 800 MG PO (11:30)
[2024-08-16] MEDS: LIDOCAINE 5% PATCH 1 PATCH TRANSDERM (11:30)
--- NOTE | 2024-08-16 13:27 | P.HP_ITS ---
H&P: HPI History of Present Illness Date/Time: 08/16/24 13:27 Chief Complaint: Lumbar back pain/Fever/Abscess Narrative: Patient is a 44-year-old male who presented to the emergency department with severe lumbar pain that had radiated down his right lower extremity with new onset of fever. Patient states pain is severe and he is unable to to lie flat due to pain he did take OT the NSAIDs at home with no relief and then developed a fever even after taking Advil. Patient with no significant past medical history. Denied any chest pain, SOB, nausea, vomiting dizziness and no difficulty urinating or defecating. patient did also report he has had a abscess under his neck with a month or so but has increased in size with mild redness and pain. patient reports the lower back pain is so severe he is unable to sit or lie down for any extended period of time to perform daily activities. In the ED: patient initially was found have a temperature of a 100.5? and elevated CRP, CT lumbar did show degenerative disc disease at the level L5 and S1 with diffuse disc bulge, consult was placed to the neuro surgery who requested a lumbar spine MRI and to initiate patient on IV antibiotic therapy was started on vancomycin, Flagyl, ceftriaxone. Patient was admitted to the medical unit for further evaluation and treatment Review of Systems Review of Systems: All systems reviewed & are unremarkable except as noted in HPI and below PMFSH Past Medical History Medical History Sinusitis Back pain with sciatica Screening for prostate cancer Wellness examination BMI 33.0-33.9,adult BMI 32.0-32.9,adult BMI 31.0-31.9,adult BMI 30.0-30.9,adult Family History Family History Mother Family history of malignant neoplasm of cervix Father No problems noted. Sibling Celiac disease Social History Social History Smoking status: Never smoker Second hand tobacco smoke exposure: No Alcohol intake: current Drinks per week: 1 Substance use: current Substance use type: marijuana Other substance usage details: GUMMIES Do You Feel Safe in your Home?: Yes Lack of Transportation: No Lack of Food: Never True Current Housing: Decline to Answer Concerned About Future Housing: No Difficulty Paying Gas/Electric Bills: No Difficulty Paying for Meds: No Currently Unemployed: No Education: Associate Degree Difficulty w/ Childcare or Family Care: No Living arrangements: with family Occupation/Education: occupation Additional occupation/education comments: [employer] Gender identity (if verbalized by the patient): Male Spiritual care concerns: No Meds Home Medications and Allergies Home Medications ?Medication ?Instructions ?Recorded ?Confirmed ?Type dextroamphetamine-amphetamine 10 10 mg PO DAILY #30 tabs 07/19/24 08/15/24 Rx mg tablet (Adderall) dextroamphetamine-amphetamine ER 30 mg PO QAM #30 caps 07/19/24 08/15/24 Rx 30 mg 24hr capsule,extend release (Adderall XR) omega-3 fatty acids 500 mg PO DAILY 08/16/24 08/16/24 History Allergies Allergy/AdvReac Type Severity Reaction Status Date / Time No Known Allergies Allergy Verified 08/15/24 13:21 Vital Signs Vital Signs - 24 hr 08/15/24 14:20 08/15/24 17:42 08/15/24 18:32 Temperature 100.5 F H Pulse Rate 71 91 83 Respiratory Rate 16 20 16 Blood Pressure 120/70 138/74 140/76 Pulse Oximetry 99 100 98 Oxygen Delivery Room Air 08/15/24 19:47 08/15/24 22:06 08/15/24 22:11 Temperature 98.4 F Pulse Rate 70 72 Respiratory Rate 21 H 21 H Blood Pressure 146/76 H 125/87 Pulse Oximetry 98 99 Oxygen Delivery 08/16/24 00:08 08/16/24 02:23 08/16/24 06:00 Temperature 98.4 F 98.2 F 98.3 F Pulse Rate 72 67 73 Respiratory Rate 21 H 18 18 Blood Pressure 125/87 155/75 H 146/76 H Pulse Oximetry 99 96 96 Oxygen Delivery 08/16/24 08:00 Temperature Pulse Rate Respiratory Rate Blood Pressure Pulse Oximetry Oxygen Delivery Room Air Exam Const: General: uncomfortable Other: Pleasant gentleman standing due to severe back pain when lying down HENMT: Face/Nose/Sinus: Normal nares present Mouth: Yes moist mucous membranes Eyes: General: appearance normal, both eyes and all related structures Neck: Neck: supple and no JVD Other: Abscess noted under chin movable, bogging, and mild erythema Resp: Effort & Inspection: normal respiratory effort Auscultation: clear to auscultation bilaterally Cardio: Rate: regular rate Rhythm: regular rhythm GI: GI Palp: Yes Soft to palpation Auscultation: normal bowel sounds Skin: General skin exam: normal color Other: Abscess noted under chin movable, bogging, and mild erythema Neuro: General: gait normal Speech: normal speech Motor exam (neuro): 5/5 motor strength present throughout Extrem: General: normal to inspection Psych: Mental Status: mental status grossly normal Affect: normal affect H&P: Results Labs Labs: Short CBC 08/15/24 08/16/24 Range/Units 18:45 05:25 WBC 12.8 H 9.8 (4.5-10.0) K/mm3 Hgb 14.7 14.0 (14.0-18.0) g/dL Hct 43.1 41.8 L (42.0-52.0) % Plt Count 197 187 (150-375) k/mm3 BMP 08/15/24 08/16/24 18:45 05:25 Sodium 136 L 140 Potassium 3.1 L 3.4 Chloride 102 106 Carbon Dioxide 25 28 BUN 25 H 17 Creatinine 1.10 0.94 Glucose 126 H 109 Calcium 8.7 8.2 L Liver Function 08/15/24 08/16/24 Range/Units 18:45 05:25 Total Bilirubin 0.8 0.3 (0.2-1.3) mg/dL AST 42 39 (17-59) U/L ALT 32 27 (6-50) U/L Alkaline Phosphatase 64 63 (38-126) U/L Albumin 3.9 3.5 (3.5-5.1) g/dL Urine 08/15/24 Range/Units 19:13 Urine Color Dark yellow (Yellow) Urine Appearance Clear (Clear) Urine pH 5.5 (5.0-9.0) Ur Specific [place] 1.036 H (1.001-1.035) Urine Protein 1+ H (Negative) mg/dL Urine Glucose (UA) Negative (Negative) mg/dL Assessment and Plan Assessment and plan (1) Radiculopathy: Qualifiers: Spinal region: lumbosacral Qualified Code(s): M54.17 - Radiculopathy, lumbosacral region Code(s): M54.10 - Radiculopathy, site unspecified Status: Acute Assessment and Plan: patient with severe lumbar pain radiating down right lower extremity unable to sit or lie due to stroke she pain with fever peaked at 100.5. CT lumbar showing degenerative disc disease plan for MRI to to rule out any type spinal abscess diskitis. Fever could be from abscess as well * Continued dexamethasone IVP 8mg daily * consulted neurosurgery appreciated further recommendations * pain management with Oxy IR, dilaudid for breakthrough pain, lidocaine patch, and valium for muscle spasms * Continued IV vanc, Flagyl, and ceftriaxone de-escalate pending results * Blood cultures x 2 * MRI lumbar pending (2) Back pain with sciatica: Code(s): M54.9 - Dorsalgia, unspecified; M54.30 - Sciatica, unspecified side Status: Acute Assessment and Plan: SEE ABOVE (3) Fever: Qualifiers: Fever type: unspecified Qualified Code(s): R50.9 - Fever, unspecified Code(s): R50.9 - Fever, unspecified Status: Acute Assessment and Plan: patient presented with fever unknown source, CXR showed no acute process CT abdomen showed some mild pleural thickening in the cecum and proximal ascending colon, patient also reported abscess under chin in due to patient's severe back pain MRI pending need to rule out any spinal abscess or diskitis. * CRP elevated * continue with current IV antibiotic therapy * blood cultures pending (4) Abscess: Code(s): L02.91 - Cutaneous abscess, unspecified Status: Acute Assessment and Plan: Patient with abscess under chin potential cause of fever * consulted surgery for possible I&D * Continue with IV ABX Plan Code status: Full code per patient DVT prophylaxis: scd/ambulatory Stress ulcer prophylaxis: NA PT/OT notes: AMbulatory Disposition: patient admitted to the medical unit for further evaluation treatment for severe lumbar back pain with fever will continue with current treatment plan pending MRI results and consult with neurosurgery. Quality VTE Prophylaxis VTE prophylaxis: mechanical ordered -Patient's previous records reviewed on admission -ER notes reviewed in detail on admission -discussed all findings and current treatment plan with patient/Family/POA -Consultations reviewed for recommendations -Patient's disposition for safe discharge discussed with case checker Dictation performed by Kiosked direct speech recognition software, therefore office clerk variants and typographical errors may occur. Hospitalist MIPS Advance Care Plan I have confirmed that the patient's Advanced Care Plan is present, code status i s documented, or surrogate decision maker is listed in patient medical record.: Yes Medication Reconciliation I have utilized all available resources to obtain, update and review the patients current medications (includes all prescriptions, OTC, herbals, cannabis, and nutritional supplements).: Yes The patient is not eligible for med reconciliation; the patient is in a emergent medical situation where delaying treatment would jeopardize the patients health.: No
[2024-08-16 14:00] VITALS: BP 139/71; PULSE 64; RESP 18; TEMP 36.8; O2SAT 98
[2024-08-16] MEDS: metroNIDAZOLE 500 MG TABLET PO ×2 (14:02→21:42)
[2024-08-16] MEDS: VANCOMYCIN 1,500 MG/NS 500 ML 1,500 MG/500 ML BAG 250 MG IVPB (14:02)
--- NOTE | 2024-08-16 15:25 | P.CONGS_ITS ---
Assessment and Plan Assessment and plan (1) Epidermal cyst of neck: Code(s): L72.0 - Epidermal cyst Status: Acute Assessment and Plan: * The patient appears to have an epidermal cyst on his anterior neck, but this does not appear to be infected or an abscess. There is no induration or erythema. The patient states this is been there for fiber 6 months and is actually smaller than it had been. This does not appear to be contributing to his current problems during this admission. Could consider elective excision in the office at some point in the future. No other recommendations at this time during the hospitalization. Follow-up as needed. (2) Back pain with sciatica: Code(s): M54.9 - Dorsalgia, unspecified; M54.30 - Sciatica, unspecified side Status: Acute (3) Radiculopathy: Qualifiers: Spinal region: lumbosacral Qualified Code(s): M54.17 - Radiculopathy, lumbosacral region Code(s): M54.10 - Radiculopathy, site unspecified Status: Acute (4) Fever: Qualifiers: Fever type: unspecified Qualified Code(s): R50.9 - Fever, unspecified Code(s): R50.9 - Fever, unspecified Status: Acute History of Present Illness Consult details Consult date: 08/16/24 Reason for consult: other (Neck abscess) Requesting physician: Geraldine Mendoza, MACHINE CLOTH EXAMINER Narrative: This is a 44-year-old man who I am asked to see for possible neck abscess. This is not main reason for his admission. He presented to emergency last night with acute onset pain with radiation down his leg. He a lumbar MRI and is awaiting neurosurgical evaluation. He was noted to have an area on his anterior neck that appeared to be slightly red. He had a history of swelling in this region in the past. He states that it has been there for about 5 her 6 months. It was actually larger than it is now, but he denies any drainage or tenderness. He has never had it incised and drained or excised in the past. Review of Systems 2 Review of Systems: All systems reviewed & are unremarkable except as noted in HPI and below Eyes: Eyes: Denies change in vision ENT: Denies hearing loss, Denies neck pain and Denies sore throat Cardiovascular: Cardiovascular: Denies chest pain and Denies dyspnea Respiratory: Respiratory: Denies cough, Denies dyspnea and Denies wheezing Gastrointestinal: Gastrointestinal: Denies diarrhea, Denies nausea and Denies vomiting Genitourinary: Genitourinary: Denies hematuria and Denies dysuria Musculoskeletal: Musculoskeletal: Reports as per HPI, Reports back pain and Reports radiating pain into limb Integumentary/Breasts: Skin/Breast: Reports as per HPI Allergic/Immunologic: Allergic/Immunologic: Denies wheezing PMFSH Past Medical History Medical History Sinusitis Back pain with sciatica Screening for prostate cancer Wellness examination BMI 33.0-33.9,adult BMI 32.0-32.9,adult BMI 31.0-31.9,adult BMI 30.0-30.9,adult Family History Family History Mother Family history of malignant neoplasm of cervix Father No problems noted. Sibling Celiac disease Social History Social History Smoking status: Never smoker Second hand tobacco smoke exposure: No Alcohol intake: current Drinks per week: 1 Substance use: current Substance use type: marijuana Other substance usage details: GUMMIES Do You Feel Safe in your Home?: Yes Lack of Transportation: No Lack of Food: Never True Current Housing: Decline to Answer Concerned About Future Housing: No Difficulty Paying Gas/Electric Bills: No Difficulty Paying for Meds: No Currently Unemployed: No Education: Associate Degree Difficulty w/ Childcare or Family Care: No Living arrangements: with family Occupation/Education: occupation Additional occupation/education comments: [employer] Gender identity (if verbalized by the patient): Male Spiritual care concerns: No Meds Home Medications and Allergies Home Medications ?Medication ?Instructions ?Recorded ?Confirmed ?Type dextroamphetamine-amphetamine 10 10 mg PO DAILY #30 tabs 07/19/24 08/15/24 Rx mg tablet (Adderall) dextroamphetamine-amphetamine ER 30 mg PO QAM #30 caps 07/19/24 08/15/24 Rx 30 mg 24hr capsule,extend release (Adderall XR) omega-3 fatty acids 500 mg PO DAILY 08/16/24 08/16/24 History Allergies Allergy/AdvReac Type Severity Reaction Status Date / Time No Known Allergies Allergy Verified 08/15/24 13:21 Vital Signs Vital Signs - 24 hr 08/15/24 17:42 08/15/24 18:32 08/15/24 19:47 Temperature 100.5 F H Pulse Rate 91 83 70 Respiratory Rate 20 16 21 H Blood Pressure 138/74 140/76 146/76 H Pulse Oximetry 100 98 98 Oxygen Delivery Room Air 08/15/24 22:06 08/15/24 22:11 08/16/24 00:08 Temperature 98.4 F 98.4 F Pulse Rate 72 72 Respiratory Rate 21 H 21 H Blood Pressure 125/87 125/87 Pulse Oximetry 99 99 Oxygen Delivery 08/16/24 02:23 08/16/24 06:00 08/16/24 08:00 Temperature 98.2 F 98.3 F Pulse Rate 67 73 Respiratory Rate 18 18 Blood Pressure 155/75 H 146/76 H Pulse Oximetry 96 96 Oxygen Delivery Room Air 08/16/24 14:00 Temperature 98.3 F Pulse Rate 64 Respiratory Rate 18 Blood Pressure 139/71 Pulse Oximetry 98 Oxygen Delivery Exam 2 Const: General: alert; No acute distress Orientation/consciousness: patient oriented x3 Limitations: no limitations HENMT: Head: normocephalic and atraumatic Ears: hearing grossly normal bilaterally Face/Nose/Sinus: Normal external nose present and Normal nares present Mouth: Yes Normal oral and palatal mucosa present and Yes moist mucous membranes Eyes: General: appearance normal, both eyes and all related structures C onjunctivae: conjunctivae normal Sclera: sclerae normal Pupils: Equal, round and reactive pupils present EOM: EOMs intact bilaterally Neck: Neck: normal visual inspection, full ROM, no lymphadenopathy, supple and no JVD Lymphatic: no lymphadenopathy noted Chest: Chest palpation & inspection: normal inspection of the chest Resp: Effort & Inspection: normal respiratory effort and able to speak in complete sentences Auscultation: clear to auscultation bilaterally P ercussion: percussion normal Cardio: Jugular venous distension: no JVD Rate: regular rate Rhythm: r egular rhythm Heart sounds: S1 normal heart sound present and S2 normal heart sound present Peripheral pulses: Peripheral pulses 2+ throughout GI: Inspection: normal to inspection Auscultation: normal bowel sounds : General: Yes no CVA tenderness Back/Spine/Pelvis: Back: no CVA tenderness Skin: General skin exam: normal color and dry skin Other: 2.5 cm anterior neck cyst just to the ri ght of midline. Skin is pink without any signs of erythema or induration. No tenderness to palpation. Fluctuant but no expressible drainage. Neuro: General: patient oriented x3 and CN's II-XI intact bilaterally C ranial nerves: Yes Equal, round and reactive pupils present Speech: normal speech Extrem: General: normal to inspection and capillary refill normal Results Labs 08/16/24 05:25 08/16/24 05:25 Labs: Abnormal lab results 08/15/24 08/15/24 08/16/24 Range/Units 18:45 19:13 05:25 WBC 12.8 H (4.5-10.0) K/mm3 Hct 41.8 L (42.0-52.0) % MPV 11.2 H 11.2 H (7.4-10.4) fl Neut % (Auto) 83.9 H 74.6 H (45.5-73.1) % Lymph % (Auto) 7.3 L 12.6 L (18.3-44.2) % [place] % (Auto) 11.1 H (2.6-8.5) % [place] # (Auto) 1.0 H 1.1 H (0.1-0.6) K/mm3 Abs Immat Gran (auto) 0.05 H (0.00-0.031) K/mm3 Absolute Neuts (auto) 10.7 H 7.3 H (1.3-6.7) K/mm3 Sodium 136 L (137-145) mmol/L Potassium 3.1 L (3.4-5.0) mmol/L BUN 25 H (9-20) mg/dL Glucose 126 H (65-110) mg/dL Calcium 8.2 L (8.4-10.2) mg/dL C-Reactive Protein 8.5 H (<1.0) mg/dL Ur Specific [place] 1.036 H (1.001-1.035) Urine Protein 1+ H (Negative) mg/dL Urine Ketones 1+ H (Negative) mg/dL Urine Bilirubin 1+ H (Negative) Urine RBC 6-10 H (0-2) /hpf Diabetes panel 08/15/24 08/16/24 Range/Units 18:45 05:25 Sodium 136 L 140 (137-145) mmol/L Potassium 3.1 L 3.4 (3.4-5.0) mmol/L Chloride 102 106 (98-107) mmol/L Carbon Dioxide 25 28 (22-30) mmol/L BUN 25 H 17 (9-20) mg/dL Creatinine 1.10 0.94 (0.7-1.3) mg/dL Glucose 126 H 109 (65-110) mg/dL Calcium 8.7 8.2 L (8.4-10.2) mg/dL AST 42 39 (17-59) U/L ALT 32 27 (6-50) U/L Alkaline Phosphatase 64 63 (38-126) U/L Total Protein 6.8 6.3 (6.3-8.2) g/dL Albumin 3.9 3.5 (3.5-5.1) g/dL Calcium panel 08/15/24 08/16/24 Range/Units 18:45 05:25 Calcium 8.7 8.2 L (8.4-10.2) mg/dL Albumin 3.9 3.5 (3.5-5.1) g/dL Pituitary panel 08/15/24 08/16/24 Range/Units 18:45 05:25 Sodium 136 L 140 (137-145) mmol/L Potassium 3.1 L 3.4 (3.4-5.0) mmol/L Chloride 102 106 (98-107) mmol/L Carbon Dioxide 25 28 (22-30) mmol/L BUN 25 H 17 (9-20) mg/dL Creatinine 1.10 0.94 (0.7-1.3) mg/dL Glucose 126 H 109 (65-110) mg/dL Calcium 8.7 8.2 L (8.4-10.2) mg/dL Adrenal panel 08/15/24 08/16/24 Range/Units 18:45 05:25 Sodium 136 L 140 (137-145) mmol/L Potassium 3.1 L 3.4 (3.4-5.0) mmol/L Chloride 102 106 (98-107) mmol/L Carbon Dioxide 25 28 (22-30) mmol/L BUN 25 H 17 (9-20) mg/dL Creatinine 1.10 0.94 (0.7-1.3) mg/dL Glucose 126 H 109 (65-110) mg/dL Calcium 8.7 8.2 L (8.4-10.2) mg/dL Total Bilirubin 0.8 0.3 (0.2-1.3) mg/dL AST 42 39 (17-59) U/L ALT 32 27 (6-50) U/L Alkaline Phosphatase 64 63 (38-126) U/L Total Protein 6.8 6.3 (6.3-8.2) g/dL Albumin 3.9 3.5 (3.5-5.1) g/dL All other labs normal. Imaging Additional studies: ITS Impressions Lumbar Spine CT 08/15/24 16:20 IMPRESSION: No acute osseous abnormality. Degenerative disc disease at the level of L5-S1 with diffuse disc bulge with narrowing of the right foramen and with compression. MRI is better for evaluation. Abdomen/Pelvis CT 08/15/24 21:32 IMPRESSION: Edematous mural thickening within the cecum and proximal ascending colon. Hepatomegaly. Borderline splenomegaly. Trace bibasilar atelectasis. Redemonstration of patient's known degenerative disease at the level of L5/S1 Chest X-Ray 08/15/24 22:29 IMPRESSION: No focal infiltrate or effusion. Lumbar Spine MRI 08/16/24 13:27 IMPRESSION: 1. Mild lumbar spondylosis most notable for annular fissure and right paracentral to foraminal zone disc protrusion at L5-S1 which and exerts mass effect upon the traversing right S1 nerve root at the lateral recess. Correlate clinically for muscle weakness of plantar flexion, sensory change of the lateral foot and small toe, and depressed ankle reflex.
[2024-08-16] MEDS: dexAMETHasone SOD PHOS INJ 4 MG/ML VIAL 8 MG IV PUSH (17:22)
[2024-08-16 19:44] VITALS: BP 139/88; PULSE 70; RESP 16; TEMP 36.6; O2SAT 96
[2024-08-17] MEDS: SODIUM CHLORIDE 0.9% IV 1,000 ML 125 ML IV CONT ×2 (00:48→05:13)
[2024-08-17] MEDS: dexAMETHasone SOD PHOS INJ 4 MG/ML VIAL 8 MG IV PUSH ×2 (00:49→05:16)
[2024-08-17] MEDS: VANCOMYCIN 1,500 MG/NS 500 ML 1,500 MG/500 ML BAG 250 MG IVPB (00:49)
[2024-08-17] MEDS: oxyCODONE HCL (*CRX) 5 MG TAB IR PO ×5 (05:14→21:41)
[2024-08-17] MEDS: metroNIDAZOLE 500 MG TABLET PO (05:14)
[2024-08-17 05:15] VITALS: BP 142/82; PULSE 67; RESP 16; TEMP 36.7; O2SAT 96
[2024-08-17 05:42] LABS: Basophils Percent Auto 0.1 % (0.2-1.2); Hematocrit 44.7 % (42.0-52.0); Hemoglobin 15.2 g/dL (14.0-18.0); Immature Granulocyte Absolute 0.02 K/mm3 (0.00-0.031); Immature Granulocyte Percent A 0.2 % (0-0.5); Lymphocytes Absolute Auto 0.79 K/mm3 (0.9-3.2); Lymphocytes Percent Auto 9.6 % (18.3-44.2); Mean Corpuscular Volume 85.3 fl (80-100); Mean Platelet Volume 11.3 fl (7.4-10.4); Monocytes Absolute Auto 0.2 K/mm3 (0.1-0.6); Monocytes Percent Auto 2.1 % (2.6-8.5); Neutrophils Absolute Auto 7.3 K/mm3 (1.3-6.7); Platelet Count Result 236 k/mm3 (150-375); Red Blood Count 5.24 M/mm3 (4.6-6.20); White Blood Count 8.3 K/mm3 (4.5-10.0)
[2024-08-17 06:36] LABS: Alanine Aminotransferase 28 U/L (6-50); Albumin Level 3.7 g/dL (3.5-5.1); Alkaline Phosphatase 65 U/L (38-126); Anion Gap 10 mmol/L (4-12); Aspartate Amino Transferase 37 U/L (17-59); Bilirubin,Total 0.3 mg/dL (0.2-1.3); Blood Urea Nitrogen 11 mg/dL (9-20); Calcium 8.6 mg/dL (8.4-10.2); Carbon Dioxide 23 mmol/L (22-30); Chloride 105 mmol/L (98-107); Estimated CRCL calculation 144 ml/min; Estimated Glomerular Filt Rate > 60; Glucose 122 mg/dL (65-110); Potassium 3.6 mmol/L (3.4-5.0); Sodium 138 mmol/L (137-145); Total Protein 6.7 g/dL (6.3-8.2)
[2024-08-17 08:11] VITALS: O2SAT 99
[2024-08-17] MEDS: LIDOCAINE 5% PATCH 1 PATCH TRANSDERM (08:23)
[2024-08-17] MEDS: DOCUSATE SODIUM 100 MG CAPSULE PO ×2 (08:23→21:41)
--- NOTE | 2024-08-17 08:27 | P.PNIM_ITS ---
Progress Note: A&P Assessment and Plan (1) Radiculopathy: Qualifiers: Spinal region: lumbosacral Qualified Code(s): M54.17 - Radiculopathy, lumbosacral region Code(s): M54.10 - Radiculopathy, site unspecified Status: Acute Assessment and Plan: patient with severe lumbar pain radiating down right lower extremity unable to sit or lie due to stroke she pain with fever peaked at 100.5. CT lumbar showing degenerative disc disease. MRI lumbar spine with mild lumbar spondylosis with right paracentral to foraminal zone disc protrusion at L5-S1 exerting mass effect upon traversing right S1 nerve root at the lateral recess. Neurosurgery consulted awaiting recommendations. On dexamethasone 8 mg daily * pain management with Oxy IR, dilaudid for breakthrough pain, lidocaine patch, and valium for muscle spasms * Continued IV vanc, Flagyl, and ceftriaxone. Will deescalate with discontinuing vancomycin and Flagyl. Continue ceftriaxone for UTI * Blood cultures x 2 negative to date (2) Back pain with sciatica: Code(s): M54.9 - Dorsalgia, unspecified; M54.30 - Sciatica, unspecified side Status: Acute Assessment and Plan: SEE ABOVE (3) Fever: Qualifiers: Fever type: unspecified Qualified Code(s): R50.9 - Fever, unspecified Code(s): R50.9 - Fever, unspecified Status: Acute Assessment and Plan: patient presented with fever unknown source, CXR showed no acute process CT abdomen showed some mild thickening in the cecum and proximal ascending colon, patient also reported epidermoid cyst under the chin * CRP elevated * continue with current IV antibiotic therapy * blood cultures negative to date (4) Abscess: Code(s): L02.91 - Cutaneous abscess, unspecified Status: Acute Assessment and Plan: Patient with abscess under chin potential cause of fever * consulted surgery for possible I&D advised to be an epidermoid cyst * Continue with IV ABX Plan Code status: Full code per patient DVT prophylaxis: scd/ambulatory Stress ulcer prophylaxis: NA PT/OT notes: AMbulatory Disposition: Await neurosurgery consultation Subjective Date/time seen: 08/17/24 08:27 Interval history: no overnight events. Remains afebrile. Back pain still present but better. Review of Systems Review of Systems: All systems reviewed & are unremarkable except as noted in HPI and below Exam Narrative: GENERAL: Well-appearing, well-nourished, and in no acute distress. HEAD: Normocephalic, atraumatic. EYES: EOMI. ENT: Nares clear, no rhinorrhea or epistaxis. Mucous membranes moist. NECK: Supple. No adenopathy or masses. CHEST: Clear to auscultation. No respiratory distress. No wheezes rales or rhonchi HEART: Regular rate and rhythm. No murmur heard. Normal peripheral pulses. ABDOMEN: Soft, nontender, nondistended, normal active bowel sounds. EXTREMITIES: Normal range of motion. No edema. Strength equal in bilateral lower extremities (5/5). Normal DP pulses SKIN: Warm, dry, no rash. NEURO: No focal deficits. Alert and oriented x3. Cranial nerves 2-12 grossly intact PSYCH: Normal mood and affect Objective Data Vital Signs Vital Signs: Vital Signs - 24 hr 08/16/24 14:00 08/16/24 19:44 08/16/24 20:00 Temperature 98.3 F 97.9 F Pulse Rate 64 70 Respiratory Rate 18 16 Blood Pressure 139/71 139/88 Pulse Oximetry 98 96 Oxygen Delivery Room Air 08/17/24 05:15 08/17/24 08:11 Temperature 98.1 F Pulse Rate 67 Respiratory Rate 16 Blood Pressure 142/82 H Pulse Oximetry 96 99 Oxygen Delivery Room Air Intake/Output Intake/Output: Intake & Output 08/14/24 08/15/24 08/16/24 08/17/24 23:59 23:59 23:59 23:59 Intake Total 2099 2750 1929.2 Balance 2100 2750 1929.2 Meds/Results Medications: Active Medications Generic Name Dose Route Start Last Admin Trade Name Freq PRN Reason Stop Dose Admin Acetaminophen 650 mg 08/15/24 23:06 Acetaminophen 325 Mg Tablet PO Q4H PRN Mild Pain (1-3) or Fever Dexamethasone Sodium Phosphate 8 mg 08/16/24 18:00 08/17/24 05:16 Dexamethasone Sod Phos Inj 4 Mg/Ml Vial IV PUSH 8 mg Q6HR LUCINA Administration Diazepam 5 mg 08/16/24 10:44 Diazepam Inj (*Crx) 10 Mg/2 Ml Syringe IV PUSH TID PRN Muscle Spasm Docusate Sodium 100 mg 08/17/24 09:00 08/17/24 08:23 Docusate Sodium 100 Mg Capsule PO 100 mg Q12HR LUCINA Administration Hydromorphone HCl 1 mg 08/16/24 13:26 Hydromorphone Hcl Inj (*Crx) 2 Mg/Ml Vial IV PUSH Q3H PRN Pain Rated 7-10 Sodium Chloride 1,000 mls @ 125 mls/hr 08/15/24 23:10 08/17/24 05:13 Normal Saline Iv IV CONT 125 mls/hr .Q8H LUCINA Administration Ceftriaxone Sodium 2 gm in 100 mls @ 200 mls/hr 08/16/24 10:00 08/16/24 21:42 Rocephin 2 Gm/Ns 100 Ml IVPB 200 mls/hr Q12H LUCINA Administration Vancomycin HCl 1,500 mg in 500 mls @ 250 mls/hr 08/16/24 13:00 08/17/24 00:49 Vancomycin 1,500 Mg/Ns 500 Ml IVPB 250 mls/hr Q12H LUCINA Administration Ibuprofen 800 mg 08/15/24 23:06 08/16/24 11:30 Ibuprofen 400 Mg Tablet PO 800 mg Q6-8H PRN Administration Pain Rated 4-6 Lidocaine 1 patch 08/16/24 12:00 08/17/24 08:23 Lidocaine 5% Patch TRANSDERM 1 patch DAILY LUCINA Administration Metronidazole 500 mg 08/16/24 14:00 08/17/24 05:14 Metronidazole 500 Mg Tablet PO 500 mg Q8HR LUCINA Administration Ondansetron HCl 4 mg 08/15/24 23:06 Ondansetron Inj 4 Mg/2 Ml Vial IV PUSH Q4H PRN Nausea Oxycodone HCl 5 mg 08/16/24 13:26 08/17/24 08:24 Oxycodone Hcl (*Crx) 5 Mg Tab Ir PO 5 mg Q4HR LUCINA Administration Radiology Results: ITS Impressions Lumbar Spine CT 08/15/24 16:20 IMPRESSION: No acute osseous abnormality. Degenerative disc disease at the level of L5-S1 with diffuse disc bulge with narrowing of the right foramen and with compression. MRI is better for evaluation. Abdomen/Pelvis CT 08/15/24 21:32 IMPRESSION: Edematous mural thickening within the cecum and proximal ascending colon. Hepatomegaly. Borderline splenomegaly. Trace bibasilar atelectasis. Redemonstration of patient's known degenerative disease at the level of L5/S1 Chest X-Ray 08/15/24 22:29 IMPRESSION: No focal infiltrate or effusion. Lumbar Spine MRI 08/16/24 13:27 IMPRESSION: 1. Mild lumbar spondylosis most notable for annular fissure and right paracentral to foraminal zone disc protrusion at L5-S1 which and exerts mass effect upon the traversing right S1 nerve root at the lateral recess. Correlate clinically for muscle weakness of plantar flexion, sensory change of the lateral foot and small toe, and depressed ankle reflex. Labs Labs: Laboratory Results - last 24 hr 08/17/24 05:10 WBC 8.3 RBC 5.24 Hgb 15.2 Hct 44.7 MCV 85.3 MCH 29.0 MCHC 34.0 RDW 12.0 Plt Count 236 MPV 11.3 H Immature Gran % (Auto) 0.2 Neut % (Auto) 88.0 H Lymph % (Auto) 9.6 L [place] % (Auto) 2.1 L Eos % (Auto) 0.0 Baso % (Auto) 0.1 L Lymph # (Auto) 0.79 L [place] # (Auto) 0.2 Eos # (Auto) 0.0 Baso # (Auto) 0.0 Abs Immat Gran (auto) 0.02 Absolute Neuts (auto) 7.3 H Absolute Nucleated RBC 0.000 Nucleated RBC % 0.0 Sodium 138 Potassium 3.6 Chloride 105 Carbon Dioxide 23 Anion Gap 10 BUN 11 D Creatinine 0.66 L Estim Creat Clear Calc 144 Estimated GFR > 60 Glucose 122 H Calcium 8.6 Total Bilirubin 0.3 AST 37 ALT 28 Alkaline Phosphatase 65 Total Protein 6.7 Albumin 3.7
[2024-08-17] MEDS: cefTRIAXone 2 GM/NS 100 ML 2 GM/100 ML BAG IVPB ×2 (09:05→21:42)
[2024-08-17] MEDS: dexAMETHasone 4 MG TABLET PO ×2 (13:24→21:42)
--- NOTE | 2024-08-17 13:35 | P.CONNS_ITS ---
Assessment and Plan Assessment and plan (1) Radiculopathy: Qualifiers: Spinal region: lumbosacral Qualified Code(s): M54.17 - Radiculopathy, lumbosacral region Code(s): M54.10 - Radiculopathy, site unspecified Status: Acute Assessment and Plan: Rodney is a very pleasant 44-year-old with a right paracentral L5-S1 disc herniation causing right S1 radiculopathy. He is neurologically intact. Plan: -Continue IV steroids -Start gabapentin 300mg TID -No acute intervention planned on this admission -Outpatient follow up & pain management consult for right L5-S1 epidural I discussed this case with Dr. Cuellar who is in agreement with this plan. Consult date: 08/17/24 Time Seen: 12:45 HPI: Rodney Deluca is a 44 year old male who presented to the emergency room on 08/15/2024 with complaints of worsening low back and right lower extremity pain as well as fever of 99.5. He was admitted for concern of osteomyelitis/ diskitis And Neurosurgery was consulted. The patient states that the lower extremity symptoms began in January without specific event. He had previously been seen by his PCP for this and states that his symptoms were tolerable until they worsened acutely over the weekend. The pain begins in the low back and radiates down the buttock and the posterior aspect of the thigh and calf into the lateral and plantar foot. He has intermittent tingling in the same distribution. He denies focal motor weakness. The symptoms are worse with sitting but are more tolerable when he stands and walks or if he lays flat. He has had no saddle anesthesia and denies loss of bowel or bladder control. He has was given muscle relaxers but has not had any other formal treatment for the back. Currently, the patient is resting flat in bed and appears reasonably comfortable. He states that the pain is tolerable when laying down or when walking but if he starts to set the head of the bed up, he has severe pain in the back that radiates down the leg in the aforementioned distribution. His is at the bedside. [facility] Past Medical History Medical History Sinusitis Back pain with sciatica Screening for prostate cancer Wellness examination BMI 33.0-33.9,adult BMI 32.0-32.9,adult BMI 31.0-31.9,adult BMI 30.0-30.9,adult Family History Family History Mother Family history of malignant neoplasm of cervix Father No problems noted. Sibling Celiac disease Social History Social History Smoking status: Never smoker Second hand tobacco smoke exposure: No Alcohol intake: current Drinks per week: 1 Substance use: current Substance use type: marijuana Other substance usage details: GUMMIES Do You Feel Safe in your Home?: Yes Lack of Transportation: No Lack of Food: Never True Current Housing: Decline to Answer Concerned About Future Housing: No Difficulty Paying Gas/Electric Bills: No Difficulty Paying for Meds: No Currently Unemployed: No Education: Associate Degree Difficulty w/ Childcare or Family Care: No Living arrangements: with family Occupation/Education: occupation Additional occupation/education comments: [employer] Gender identity (if verbalized by the patient): Male Spiritual care concerns: No Meds Home Medications and Allergies Home Medications ?Medication ?Instructions ?Recorded ?Confirmed ?Type dextroamphetamine-amphetamine 10 10 mg PO DAILY #30 tabs 07/19/24 08/15/24 Rx mg tablet (Adderall) dextroamphetamine-amphetamine ER 30 mg PO QAM #30 caps 07/19/24 08/15/24 Rx 30 mg 24hr capsule,extend release (Adderall XR) omega-3 fatty acids 500 mg PO DAILY 08/16/24 08/16/24 History Allergies Allergy/AdvReac Type Severity Reaction Status Date / Time No Known Allergies Allergy Verified 08/15/24 13:21 Vital Signs Vital Signs - 24 hr 08/16/24 14:00 08/16/24 19:44 08/16/24 20:00 Temperature 98.3 F 97.9 F Pulse Rate 64 70 Respiratory Rate 18 16 Blood Pressure 139/71 139/88 Pulse Oximetry 98 96 Oxygen Delivery Room Air 08/17/24 05:15 08/17/24 08:11 Temperature 98.1 F Pulse Rate 67 Respiratory Rate 16 Blood Pressure 142/82 H Pulse Oximetry 96 99 Oxygen Delivery Room Air Exam 2 Narrative: Patient is A&O x4. No acute distress. Calm, cooperative, and appears comfortable. Cranial nerves intact. Symmetric facial movements, EOM intact. Bilateral lower extremity strength intact, 5/5 to manual muscle testing. Decreased sensation in right S1 distribution (does have lidocaine patches on the back of the thigh). Positive straight leg raise on the right. Denies saddle anesthesia or bowel/bladder incontinence, rectal exam deferred. Results Labs 08/17/24 05:10 08/17/24 05:10 Labs: Short CBC 08/17/24 Range/Units 05:10 WBC 8.3 (4.5-10.0) K/mm3 Hgb 15.2 (14.0-18.0) g/dL Hct 44.7 (42.0-52.0) % Plt Count 236 (150-375) k/mm3 BMP 08/17/24 05:10 Sodium 138 Potassium 3.6 Chloride 105 Carbon Dioxide 23 BUN 11 D Creatinine 0.66 L Glucose 122 H Calcium 8.6 Liver Function 08/17/24 Range/Units 05:10 Total Bilirubin 0.3 (0.2-1.3) mg/dL AST 37 (17-59) U/L ALT 28 (6-50) U/L Alkaline Phosphatase 65 (38-126) U/L Albumin 3.7 (3.5-5.1) g/dL Imaging My impression: I reviewed the lumbar spine MRI from 08/[address] from 08/15. These demonstrate a right paracentral L5-S1 disc herniation which causes moderate right lateral recess stenosis with compression of the traversing right S1 nerve root. There is mild to moderate right neuroforaminal stenosis at L5-S1 and mild spinal canal stenosis without compression of the rest of the cauda equina. There is a slight grade 1 spondylolisthesis at this level and bilateral facet joint effusions. There is no more than mild neural foraminal stenosis at any other level. There are no discrete fluid collections or abscess in the spinal canal or the paraspinal soft tissues. There are no acute fractures.
[2024-08-17 14:00] VITALS: BP 142/82; PULSE 67; RESP 16; TEMP 36.7; O2SAT 99
[2024-08-17] MEDS: GABAPENTIN 300 MG CAPSULE PO (17:20)
[2024-08-17] MEDS: diazePAM (*CRX) 5 MG TABLET PO (21:42)
[2024-08-17 21:46] VITALS: BP 136/76; PULSE 71; RESP 18; TEMP 36.5; O2SAT 96
[2024-08-18] MEDS: oxyCODONE HCL (*CRX) 5 MG TAB IR PO ×3 (05:55→12:18)
[2024-08-18] MEDS: dexAMETHasone 4 MG TABLET PO ×2 (05:55→12:19)
[2024-08-18 06:22] LABS: Basophils Percent Auto 0.1 % (0.2-1.2); Hemoglobin 13.6 g/dL (14.0-18.0); Immature Granulocyte Absolute 0.07 K/mm3 (0.00-0.031); Immature Granulocyte Percent A 0.5 % (0-0.5); Lymphocytes Absolute Auto 1.21 K/mm3 (0.9-3.2); Lymphocytes Percent Auto 8.7 % (18.3-44.2); Mean Corpuscular Hemoglobin 28.9 pg (26-34); Mean Corpuscular Volume 84.9 fl (80-100); Monocytes Absolute Auto 0.8 K/mm3 (0.1-0.6); Monocytes Percent Auto 5.5 % (2.6-8.5); Neutrophils Absolute Auto 11.9 K/mm3 (1.3-6.7); Neutrophils Percent Auto 85.2 % (45.5-73.1); Platelet Count Result 269 k/mm3 (150-375); Red Blood Count 4.71 M/mm3 (4.6-6.20); Red Cell Distribution Width 12.3 % (11.5-14.5); White Blood Count 13.9 K/mm3 (4.5-10.0)
[2024-08-18 06:36] VITALS: BP 140/79; PULSE 70; RESP 16; TEMP 36.6; O2SAT 98
[2024-08-18 06:39] LABS: Alanine Aminotransferase 27 U/L (6-50); Albumin Level 3.5 g/dL (3.5-5.1); Alkaline Phosphatase 60 U/L (38-126); Anion Gap 8 mmol/L (4-12); Aspartate Amino Transferase 31 U/L (17-59); Bilirubin,Total 0.2 mg/dL (0.2-1.3); Blood Urea Nitrogen 18 mg/dL (9-20); Calcium 8.8 mg/dL (8.4-10.2); Carbon Dioxide 26 mmol/L (22-30); Chloride 107 mmol/L (98-107); Estimated CRCL calculation 130 ml/min; Estimated Glomerular Filt Rate > 60; Glucose 132 mg/dL (65-110); Potassium 3.7 mmol/L (3.4-5.0); Sodium 141 mmol/L (137-145); Total Protein 6.4 g/dL (6.3-8.2)
[2024-08-18] MEDS: LIDOCAINE 5% PATCH 1 PATCH TRANSDERM (08:59)
[2024-08-18] MEDS: DOCUSATE SODIUM 100 MG CAPSULE PO (08:59)
[2024-08-18] MEDS: GABAPENTIN 300 MG CAPSULE PO ×2 (08:59→12:18)
[2024-08-18] MEDS: cefTRIAXone 2 GM/NS 100 ML 2 GM/100 ML BAG IVPB (09:00)
--- NOTE | 2024-08-18 12:11 | PM.DS ---
DS: Admitting Diagnosis Discharge Date 08/18/24 Admitting Diagnosis Lumbar back pain/Fever/Abscess DS: Discharge Diagnosis Discharge Diagnosis (1) Radiculopathy: Qualifiers: Spinal region: lumbosacral Qualified Code(s): M54.17 - Radiculopathy, lumbosacral region Code(s): M54.10 - Radiculopathy, site unspecified Status: Acute DS: Summary Hospital Course Hospital Course: Patient is a 44-year-old male who presented to the emergency department with severe lumbar pain that had radiated down his right lower extremity with new onset of fever. Patient states pain is severe and he is unable to to lie flat due to pain he did take OT the NSAIDs at home with no relief and then developed a fever even after taking Advil. Patient with no significant past medical history. Denied any chest pain, SOB, nausea, vomiting dizziness and no difficulty urinating or defecating. patient did also report he has had a abscess under his neck with a month or so but has increased in size with mild redness and pain. patient reports the lower back pain is so severe he is unable to sit or lie down for any extended period of time to perform daily activities. In the ED: patient initially was found have a temperature of a 100.5? and elevated CRP, CT lumbar did show degenerative disc disease at the level L5 and S1 with diffuse disc bulge, consult was placed to the neuro surgery who requested a lumbar spine MRI and to initiate patient on IV antibiotic therapy was started on vancomycin, Flagyl, ceftriaxone. Patient was admitted to the medical unit for further evaluation and treatment MRi showed L5-S1 with disc herniation with mass effect on S1 nerve root. Neurosurgery was consulted and recommended IV steroid, Gabapentin, and no surgical intervention recommended at this time. Neurosurgery will follow up outpatinet for pain management. Also managed for Fever, CT AP showed protictis and colitis, CXR unremarkable, Lumbar MRI as decribed above. Patient was placed on Rocephin and last fever was on 3 days ago, blood cultures negative. Thus he was dsicharged on Keflex to complete 7 days total of antibiotics. Patient ambulated today and appears comfortable, discharged on tapering dose of Dexamethasone, Gabapentin, Lidocaine patch, tizanidine and PRN [place]. F/u with PCP in 3-5 days F/u with neurosurgery as instructed Time Spent with Patient Time attestation: Total time spent providing and/or coordinating discharge services: DS: Data Data Completed and Pending Labs on day of discharge: Labs from last 24 hours 08/18/24 06:05 WBC 13.9 H RBC 4.71 Hgb 13.6 L Hct 40.0 L MCV 84.9 MCH 28.9 MCHC 34.0 RDW 12.3 Plt Count 269 MPV 11.0 H Immature Gran % (Auto) 0.5 Neut % (Auto) 85.2 H Lymph % (Auto) 8.7 L [place] % (Auto) 5.5 Eos % (Auto) 0.0 Baso % (Auto) 0.1 L Lymph # (Auto) 1.21 [place] # (Auto) 0.8 H Eos # (Auto) 0.0 Baso # (Auto) 0.0 Abs Immat Gran (auto) 0.07 H Absolute Neuts (auto) 11.9 H Absolute Nucleated RBC 0.000 Nucleated RBC % 0.0 Sodium 141 Potassium 3.7 Chloride 107 Carbon Dioxide 26 Anion Gap 8 BUN 18 Creatinine 0.74 Estim Creat Clear Calc 130 Estimated GFR > 60 Glucose 132 H Calcium 8.8 Total Bilirubin 0.2 AST 31 ALT 27 Alkaline Phosphatase 60 Total Protein 6.4 Albumin 3.5 Preliminary micro results at discharge 08/15/24 21:06 Blood Culture - Preliminary Blood 08/15/24 21:06 Blood Culture - Preliminary Blood Discharge Plan Discharge Attending physician on discharge: Melissa Carrizales Consulting providers: Minh Cuellar; Geraldine Mendoza Discharging Clinician: Melissa Carrizales Anticipated Discharge Date/Time: 08/18/24 11:51 Patient Disposition: Home Activity: as tolerated Diet: as tolerated and regular Patient Instructions: Antibiotic Form Patient Language: Yemeni Stand Alone Forms: General Discharge Information Follow-up/Referrals: Aaron Lennon DO [Physician] - Call for Appointment (May call my office to set up appointment to remove cyst on neck.) Discharge Medications: New cephalexin 500 mg Capsule 500 mg PO Q12HR 4 Days Qty: 8 0RF lidocaine [Lidoderm] 5 % Adhesive Patch,Medicated 1 patch transdermal DAILY 14 Days Qty: 15 0RF gabapentin [Neurontin] 300 mg Capsule 300 mg PO TID 14 Days Qty: 42 0RF oxycodone 5 mg Tablet 5 mg PO Q4HR 12 Days Qty: 10 0RF dexamethasone 2 mg tablet 2 mg PO .see instructions Qty: 11 0RF Rx Instructions: 2mg bid x 3 days, then 2mg daily x 3 days, then 1 mg daily x 3 days, then stop. tizanidine 2 mg capsule 2 mg PO Q12H PRN (Reason: muscle spasticity) 14 Days Qty: 20 0RF Continued omega-3 fatty acids Capsule 500 mg PO DAILY dextroamphetamine-amphetamine [Adderall] 10 mg tablet 10 mg PO DAILY Qty: 30 0RF Rx Instructions: take 1 tablet at 1pm dextroamphetamine-amphetamine [Adderall XR] 30 mg capsule,extended release 24hr 30 mg PO QAM Qty: 30 0RF Date of admission: 08/15/24 23:06 Primary Care Provider: Kain Mahan Admitting Provider: Luzma Arenas Attending physician on admission: Luzma Arenas Condition: Stable
== END 2024-08-18 12:40 | disposition home or self-care (01) ==
LOC: ANHED 23:15 → ANH3MED 08-16 02:33
PROVIDERS: Nurse Practitioner Family; Admitting Provider Internal Medicine; Emergency Provider Physician Assistant; PCP Family Medicine; Visit Provider Internal Medicine
DX: M51.17 Intervertebral disc disorders with radiculopathy, lumbosacral region (principal); R50.9 Fever, unspecified; L72.0 Epidermal cyst; Z79.899 Other long term (current) drug therapy
CPT/HCPCS: 36415; 71046; 72131; 72158; 74177; 80053; 81001; 83605; 83735; 85025; 85652; 86140; 87040; 96361; 96365; 96366; 96367; 96372; 96374; 96375; 96376; 99285; A9270; A9577; G0378; J0696; J1100; J1885; J3360; J3370; J7030; J8540; Q9967

== ENCOUNTER 2024-10-10 08:28 | Day surgery (SDC) | payer OTHER, SELFPAY ==
[2024-09-21 11:02] VITALS: BMI 33.8
--- NOTE | ~2024-10-10 | XR_ITS ---
EXAM: XR fluoroscopy no charge - 10/10/2024 9:35 CDT History: 44 years old Male with RIGHT L5-S1 TRANSFORAMINAL EPIDURAL STEROID INJ Fluoroscopy time: 10.5 sec FINDINGS/ IMPRESSION: Multiple fluoroscopic images of epidural steroid injection. Reviewed, dictated and finalized at location A.
--- OUTSIDE RECORDS SUMMARY | 2024-10-10 08:38 | XMS_ITS | Clinical Summary ---
Author Organization [facility] Address [address] [place] [address] Care Team Providers Care Assistant Manager/Embalmer Name Role Phone Kain Mahan MD Primary Care Provider [phone] Source Comments [facility],non-owned Affiliates and Associated Physician Practices is amultiple site organization consisting of ambulatory clinics and hospital sitesin [place], [place], [place] and [place]. This disclosure is being madepursuant to the Care Everywhere program and may not contain all information available regarding this patient. Last updated 17.[facility] Allergies No known active allergies Medications * Be aware that medications may not be up to date on this document. Alwaysverify current medications with the patient. Amphetamine-Dextro amphetamine (ADDERALL PO) Active Social History Tobacco Use Types Packs/Day Years Used Date Smoking Tobacco: Never Smokeless Tobacco: Never Sex and Gender Information Value Date Recorded Sex Assigned at Not on file Legal Sex Male 10:38 AM SE[employer] Gender Identity Not on file Sexual Orientation Not on file Last Filed Vital Signs Vital Sign Reading Time Taken Comments Blood Pressure 116/78 06/06/2017 12:22 PM CDT Pulse 58 06/06/2017 12:22 PM CDT Temperature 36.9 C (98.5 F) 06/06/2017 12:22 PM CDT Respiratory Rate 18 06/06/2017 12:22 PM CDT Oxygen Saturation 99% 06/06/2017 12:22 PM CDT Inhaled Oxygen Concentration - - Weight 83.9 kg (185 lb) 06/06/2017 12:22 PM CDT Height 172.7 cm (5' 8) 06/06/2017 12:22 PM CDT Body Mass Index 28.13 06/06/2017 12:22 PM CDT Plan of Treatment Health Maintenance Due Date Last Done Comments LIPID TESTING 1982 HIV SCREENING 1997 HEPATITIS C SCREENING 01/07/2000 DTAP/TDAP/TD VACCINES (1 - Tdap) 2001 HEPATITIS B VACCINE (1 of 3 - 19+ 3-dose series) 2001 HPV VACCINE (1 - 3-dose SCDM series) 2009 COVID-19 VACCINE (1 - 2023-2 5 season) 2023 DEPRESSION SCREENING 02/24/2024 INFLUENZA VACCINE (#1) 2024 ZOSTER VACCINE (1 of 2) 01/12/2032 HIB VACCINE Aged Out No longer eligi ble based on patient's age to complete this topic MENINGOCOCCAL (Group B) VACC INE SHARED DECISION-MAKING Aged Out No longer eligibl e based on patient's age to complete this topic MENINGOCOCCAL GROUPS A/C/Y/W VACCINE Aged Out No longer eligible b ased on patient's age to complete this topic PNEUMOCOCCAL VACCINE Aged Out No long er eligible based on patient's age to complete this topic Insurance [employer]ET[employer] Care Teams Assistant Manager/Embalmer Relationship Specialty Start Date End Date Kain Mahan MD [address] [place] [address] PCP - General Family Medicine 03/22/16
[2024-10-10 09:06] VITALS: BP 130/96; PULSE 71; RESP 18; TEMP 36.6; O2SAT 100
--- NOTE | 2024-10-10 09:08 | WPDHPUPDATE1 ---
History and Physical Update Update Date/Time: 10/10/24 09:08 History and Physical has been reviewed, including an updated exam of the patient. There are NO changes in the patient's condition. Risks, benefits, and alternatives have been discussed and questions answered. Patient agrees to proceed with procedure.
--- NOTE | 2024-10-10 09:09 | P.OP_ITS ---
Procedure Note - Detailed Date of Procedure 10/10/24 Pre-op Diagnosis Lumbosacral radiculopathy, herniated nucleus pulposus Post-op Diagnosis Same Procedure Performed Right lumbosacral Transforaminal Epidural Steroid Injection under Fluoroscopic Guidance and with Contrast Control at L5-S1. Surgeon Jose Kyle MD Anesthesia Local Description of Procedure INFORMED CONSENT: Risks, benefits and alternatives to the procedure were discussed in detail with the patient who expressed explicit understanding and consent to proceed. Patient was informed verbally and in written form regarding the risks associated with the procedure including the low risk of serious infection, bleeding/bruising, allergic reaction, nerve or organ injury, paralysis, procedural site pain or discomfort, worsening pain and/or mobility, failure to treat and/or disfigurement. The patient expressed explicit understanding and consent to proceed. All materials required for the procedure were available prior to procedure start. Site and side was marked prior to procedure and confirmed in the presence of the patient. PROCEDURE IN DETAIL: The patient was brought to the procedural suite and placed in the prone position. Patient was made comfortable with use of pillows under the head/chest, hips and ankles. Skin overlying the injection site was prepared broadly with ChloraPrep applicator and draped in a sterile manner. Aseptic technique was employed throughout. The endplates of the vertebral body at the site of interest were aligned in the AP view. Ipsilateral oblique angulation was utilized to better visualize the neuroforamen of interest. Local anesthesia was established by infiltration with approximately 5 mL of 0.5% PF lidocaine via a 1-1/2 inch 27-gauge needle. A 22-gauge 5.0 inch Mitzi (pencil point) spinal needle was advanced until the needle approached the 6 o'clock position on the pedicle just superior to the exiting nerve root. on the right at L5-S1. Lateral view was utilized to confirm appropriate position of the needle tip within the superior and posterior portion of the respective foramen. In an AP view, 1 mL of Omnipaque 300 contrast medium was injected after negative aspiration for CSF, blood or other bodily fluid, showing appropriate neurogram without evidence of intravascular or intrathecal spread of contrast. Digital subtraction imaging was used with an additional 1ml of the same contrast medium to confirm absence of intravascular contrast spread. A 1mL solution containing 6 mg of betamethasone was injected after negative repeat aspiration. Appropriate spread of the injectate was confirmed with washout of previously injected contrast. No parasth esias were elicited. Needle was removed completely intact without difficulty. Images were saved and documented in the patient chart. Patient's skin was cleaned and sterile bandage applied. The patient tolerated the procedure well. The patient was transported to the recovery area in stable condition where they were observed for an appropriate amount of time prior to discharge, without evidence of complication. The patient was instructed to avoid excessive activity for the next 48 hours, including climbing and frequent use of stairs. Showers only for 48 hours. They were instructed not to drive or operate heavy machinery for 24 hours. They are to monitor for severe headaches, fevers, chills, night sweats, erythema/swelling at the site or any other signs of infection, bleeding/bruising, bowel or bladder changes as well as new pain, weakness or numbness in the upper or lower extremity. Should they notice these changes, they are instructed to call our office immediately or report directly to the nearest Emergency Department if no answer or if after posted office hours. COMPLICATIONS: None COMMENTS: None CONTRAST WASTED: 28 mL Omnipaque 300. Complications No immediate complications Condition Stable Disposition Same day [facility] Billing Surgery - Charge Forward: Surgery Billing
[2024-10-10 09:43] VITALS: BP 136/91; PULSE 64; RESP 12; O2SAT 96
[2024-10-10] MEDS: BETAMETHASONE SODIUM PHOSPHATE PF INJ 6 MG/ML VIAL INFILTRATE (09:45)
[2024-10-10] MEDS: LIDOCAINE 1% PF INJ 5 ML VIAL INFILTRATE (09:45)
[2024-10-10 09:47] VITALS: PULSE 61; RESP 12; O2SAT 96
[2024-10-10] MEDS: LIDOCAINE 2% PF LOCAL INJ 5 ML VIAL INFILTRATE (09:47)
[2024-10-10 09:52] VITALS: BP 127/93; PULSE 65; RESP 16; O2SAT 98
== END 2024-10-10 10:04 | disposition home or self-care (01) ==
PROVIDERS: PCP Family Medicine; Visit Provider Anesthesiology Pain Medicine
PROC: (CPT 64483; principal; 2024-10-10 09:10)
DX: M51.17 Intervertebral disc disorders with radiculopathy, lumbosacral region (principal); M47.27 Other spondylosis with radiculopathy, lumbosacral region; M48.062 Spinal stenosis, lumbar region with neurogenic claudication; G89.29 Other chronic pain
CPT/HCPCS: 64483; 99199